=== PATIENT | female | born 1990 | race Caucasian/White ===

== ENCOUNTER 2016-06-28 01:49 | Emergency (ER) | payer SELFPAY ==
[~2016-06-28] VITALS: Ht 162.6 cm; Wt 59.0 kg
[2016-06-28] MEDS ORDERED: NKM (01:55)
[2016-06-28 02:00] VITALS: BP 145/97
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
[2016-06-28 03:45] VITALS: BP 140/98
== END 2016-06-28 03:41 | disposition home or self-care (01) ==
LOC: EDBD 01:49 → EMR 02:08
DX: F12.10 Cannabis abuse, uncomplicated (principal)
CPT/HCPCS: 99283